=== PATIENT | male | born 1970 | race Caucasian/White ===

== ENCOUNTER 2022-02-28 12:02 | Emergency (ER) | payer BC, SELFPAY ==
[2022-02-28 12:08] VITALS: BP 141/90; PULSE 84; RESP 16; TEMP 36.8; O2SAT 98
--- OUTSIDE RECORDS SUMMARY | 2022-02-28 12:16 | XMS_ITS | Encounter Summary ---
:1970 Author Organization [facility] [place] [address] Care Team Providers Name Role Phone El Bolton MD Primary Care Provider Reason for Visit Reason Comments Medication Refill Encounter Details Date Type Department Care Team Description 11/23/2011 Refill Dermatology Lauri Faith MD [address] DERMATOLOGY [place], [place] [address] [place] [address] [phone] (Wo rk) Social History Tobacco Use Types Packs/Day Years Used Date Never Assessed Sex Assigned at Date Recorded Not on file documented as of this encounter Plan of Treatment Not on filedocumented as of this encounter Visit Diagnoses Not on filedocumented in this encounter 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
--- OUTSIDE RECORDS SUMMARY | 2022-02-28 12:16 | XMS_ITS | Encounter Summary ---
:1970 Author Organization [facility] [place] [address] Care Team Providers Name Role Phone El Bolton MD Primary Care Provider Reason for Visit Reason Comments Medication Refill Encounter Details Date Type Department Care Team Description 01/02/2013 Refill Dermatology Lauri Faith MD [address] DERMATOLOGY [place], [place] [address] [place] [address] [phone] (Wo rk) Social History Tobacco Use Types Packs/Day Years Used Date Never Assessed Sex Assigned at Date Recorded Not on file documented as of this encounter Plan of Treatment Not on filedocumented as of this encounter Visit Diagnoses Not on filedocumented in this encounter Care Teams Systems Management Consultant Relationship Specialty Start Date End Date El Bolton MD PCP - General 06/18/10 [address] [place] [address] documented as of this encounter
--- OUTSIDE RECORDS SUMMARY | 2022-02-28 12:16 | XMS_ITS | Encounter Summary ---
:1970 Author Organization [facility] [place] [address] Care Team Providers Name Role Phone El Bolton MD Primary Care Provider Reason for Visit Reason Comments Medication Refill Encounter Details Date Type Department Care Team Description 06/09/[address] 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
[2022-02-28 12:19] VITALS: RESP 16
--- NOTE | 2022-02-28 12:29 | ED.GENADUL_ITS ---
Discharge Plan Disposition Patient Disposition: HOME Condition: Stable Discharge Details Clinical Impression: Acute deep vein thrombosis (DVT) of right lower extremity Primary Care Provider: El Bolton ED Provider: Nida Landis Home Meds and New Rx's Prescriptions: New Eliquis 5 mg tablet 5 mg PO BID Qty: 204 0RF Rx Instructions: Take 2 tabs twice daily for 6 days starting 03/01/22 and then take 1 tab daily. Discharge Instructions Instructions: Deep Vein Thrombosis (ED) Additional Instructions: Your ultrasound today revealed that you have a deep vein thrombosis (blood clot) in your right leg. A prescription for the blood thinner Eliquis has been sent electronically to your pharmacy. You will take 10 mg twice daily for a total of 1 week and then take 5 mg twice daily. You will potentially be taking this medication for a total of 3 months and may need to be longer. It is recommended that you stay active and ambulate as you normally do. It is recommended to keep your legs elevated as much as possible when sitting. You have been placed on care management's list to help arrange for a follow-up appointment with your primary care doctor next week for reevaluation and for referral for any additional work-up for potential causes of your blood clot if indicated. Return immediately to the emergency department if you develop any worsening or new concerning symptoms such as fever, worsening swelling, pain, chest pain or shortness of breath. Discharge Data Discharge Physician: Nida Landis Medical Decision Making 51-year-old male presents with right lower leg pain, redness and swelling for the past week. He appears to have patchy erythema approximately 8 x 10 cm located on the right anterior medial calf. There is edema in the right leg compared to the left leg. He is otherwise neurovascularly intact. There is no pain with range of motion of the right knee or ankle. Suspect cellulitis but also consider DVT. Will obtain screening labs and ultrasound. Ultrasound notes a 25 cm DVT extending from the posterior tibialis veins into the popliteal vein. Results discussed with patient and he states he has been more immobile lately and falling asleep in his chair at nighttime. He denies any recent surgeries and no history of smoking. Suspect his DVT could have been precipitated by immobility. Will plan for follow-up with his PCP for potential thrombophilic work-up if indicated. Will treat with Eliquis 10 mg p.o. now and give 10 mg for this evening. A prescription for Eliquis was sent electronically to his pharmacy. Labs reviewed and he has a normal white blood cell count and CRP 2.55. As he has a source for his right leg pain, redness and swelling, will hold on treatment with antibiotics at this time. Patient again denies any shortness of breath or chest pain and do not obtain indication for PE work-up. Patient placed on care management list to help arrange for follow-up appoint wit h his primary care doctor for reevaluation and for potential thrombophilic work- up. Usual and customary return precautions given prior to discharge. Medical Records Medical records reviewed: Yes I reviewed the patient's medical records. Imaging Data Radiologic Study: Radiologist's impression: US LOWER EXTREMITY VENOUS RT CLINICAL HISTORY:? R calf pain/redness, swelling, r/o dvt? TECHNIQUE:? Right lower extremity venous ultrasound performed using grayscale, color-flow, and spectral Doppler analysis. COMPARISON:? No exams were available for comparison FINDINGS: The right common femoral, and femoral veins demonstrate normal compressibility, augmentation, and color Doppler. There is nonocclusive hypoechoic thrombus seen extending from the posterior tibialis veins into the popliteal vein.? It measures 25 cm in length.? The saphenofemoral junction is unremarkable.? There is no evidence of a Huntley cyst.? The soft tissues are unremarkable. IMPRESSION: 1. Findings of a right lower extremity DVT extending from the posterior tibialis veins into the popliteal vein. Lab Data Lab results reviewed: Yes I reviewed the patient's lab results. Labs: Laboratory Tests Range/Units 02/28/22 02/28/22 02/28/22 14:24 14:24 14:24 WBC (4.4-10.8) 10^3/uL 8.12 RBC (4.36-5.78) 10^6/uL 4.64 Hgb (13.5-17.5) g/dL 14.0 Hct (40.0-50.0) % 42.0 MCV (80-95) fL 91 MCH (27.0-33.0) pg 30.2 MCHC (32.0-36.0) % 33.3 RDW (11.8-14.1) % 12.1 Plt Count (130-400) 10^3/uL 145 MPV (8.0-11.0) fL 10.0 Immature Gran % 0.1 Neutrophils % 68.5 Lymphocytes % 19.2 Monocytes % 8.4 Eosinophils % 3.6 Basophils % 0.2 Nucleated RBC % (0.0-0.3) % 0.0 Absolute Neutrophils (1.2-6.7) 10^3/uL 5.56 Absolute Lymphocytes (1.2-3.4) 10^3/uL 1.56 Absolute Monocytes (0.1-0.8) 10^3/uL 0.68 Absolute Eosinophils (0.0-0.7) 10^3/uL 0.29 Absolute Basophils (0.0-0.2) 10^3/uL 0.02 ESR (0-15) mm/hr 7 Sodium (136-145) mmol/L 137 Potassium (3.5-5.1) mmol/L 4.1 Chloride (98-107) mmol/L 101 Carbon Dioxide (21.0-32.0) mmol/L 28.9 Anion Gap (3-11) mmol/L 7.1 BUN (7-18) mg/dL 16 Creatinine (0.70-1.30) mg/dL 1.0 Estimated GFR/1.73 m2 (mL/min/1.73m2) >= 60.00 Glucose (74-106) mg/dL 91 Calcium (8.5-10.1) mg/dL 8.8 Total Bilirubin (0.2-1.0) mg/dL 1.1 H AST (15-37) U/L 18 ALT (16-63) U/L 26 Alkaline Phosphatase (46-116) U/L 70 C-Reactive Protein (0.0-0.3) mg/dL 2.55 H Total Protein (6.4-8.2) g/dL 7.3 Albumin (3.4-5.0) g/dL 3.5 HPI General Mode of arrival: ambulatory . Date/Time Provider Initiated Documentation: 02/28/22 12:22 . Limitations to Documentation: no limitations . Information obtained by: patient . HPI Narrative: Pt is a 51yo M who presents to the ED w/ a c/o R leg pain, redness and swelling for the past week. 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 He states the pain is worse with walking. He states the area of redness and swelling has increased since onset. He denies any known fever or chills, body aches, chest pain or difficulty breathing. Related Data Home Medications Medication Instructions Recorded Confirmed apixaban 5 mg tablet (Eliquis) 5 mg PO BID #204 tabs 02/28/22 Previous Rx's Medication Instructions Recorded apixaban 5 mg tablet (Eliquis) 5 mg PO BID #204 tabs 02/28/22 Allergies Allergy/AdvReac Type Severity Reaction Status Date / Time No Known Allergies Allergy Unverified 02/28/22 12:17 General Stated Complaint: Vascular PABLO: 3 Review of Systems All systems reviewed & are unremarkable except as noted in HPI and below Constitutional Constitutional: Denies chills, Denies excessive sweating, Denies fatigue, Denies fever(s), Denies weakness and Denies weight loss Eyes Eyes: Reports system reviewed and no additional complaints, except as documented and Denies blurry vision ENT Ears, Nose, Mouth, and Throat: Denies vertigo, Denies dizziness, Denies otalgia, Denies nasal congestion, Denies sore throat and Denies throat swelling Cardiovascular Cardiovascular: Denies chest pain, Denies syncope, Denies rapid heart rate and Denies dyspnea Respiratory Respiratory: Denies chest congestion, Denies cough, Denies pain on inspiration a nd Denies dyspnea Gastrointestinal Gastrointestinal: Denies abdominal pain, Denies diarrhea and Denies vomiting Genitourinary Genitourinary: Denies hematuria, Denies dysuria and Denies flank pain Musculoskeletal Musculoskeletal: Denies back pain and Denies joint swelling Integumentary/Breasts Skin/Breast: Denies lesions and Denies rash Neurologic Neurologic: Denies behavioral changes, Denies confusion, Denies vertigo, Denies dizziness, Denies syncope, Denies localized weakness and Denies weakness Psychiatric Psychiatric: Denies behavioral changes, Denies confusion and Denies depression Endocrine Endocrine: Denies excessive sweating and Denies fatigue Hematologic/Lymphatic Hematologic/Lymphatic: Denies easy bruising and Denies lymphadenopathy Allergic/Immunologic Allergic/Immunologic: Denies throat swelling PFSH All Active Problems (Updated 02/28/22 @ 15:32 by Nida Landis DO) Acute deep vein thrombosis (DVT) of right lower extremity (Acute) Medical History (Updated 02/28/22 @ 15:32 by Nida Landis DO) No significant past medical history Surgical History (Updated 02/28/22 @ 12:43 by Nida Landis DO) No significant past surgical history Social History Smoking/Tobacco Use Status: Never Smoking risk assessment performed?: Yes Alcohol Intake: never Substance use type: does not use Do you feel safe at home: Yes Do you feel safe in your relationship?: Yes Exam Const General: cooperative and healthy appearing Orientation: alert, awake and oriented x3 HENMT Head: normal to inspection Ears: hearing grossly normal bilaterally, external ears normal and TM's normal bilaterally General nose exam: external nose normal Face and sinus: normal facial exam Mouth: oral mucosae normal Teeth and gingiva: dentition normal Throat: posterior oropharynx normal Eyes General: appearance normal, both eyes and all related structures Eyelids: eyelids normal Pupils: PERRL EOM: EOM intact bilaterally Neck Neck: normal visual inspection Lymphatic: no lymphadenopathy noted Chest Chest: normal inspection of the chest Resp Effort & Inspection: normal respiratory effort and able to speak in complete sentences Auscultation: clear to auscultation bilaterally Cardio Rate: regular rate Rhythm: regular rhythm GI Inspection: normal to inspection Palpation: soft, not firm, no guarding, no hepatosplenomegaly, no masses and nontender Auscultation: normal bowel sounds Back/Spine/Pelvis Back: no CVA tenderness Skin General skin exam: no rashes or lesions noted Neuro General: patient alert and patient awake Cognition: normal cognition Speech: speech normal Gait: normal gait Motor: muscle tone normal throughout Sensory Exam: no sensory deficits noted Extrem Ankle/foot/toe images: 1. Patchy erythema, hot to touch. There is edema of the right lower extremity compared to the left lower extremity. Right DP and PT pulses intact. Other: No pain with range of motion in the right knee or right ankle. Psych Appearance: grossly normal Mental Status: mental status grossly normal Speech and Movement: speech and movement normal Affect: normal affect Thought Process: normal Course Vital Signs Vital signs: Vital Signs Temperature 98.2 F 02/28/22 12:08 Pulse 84 02/28/22 12:08 Respiratory Rate 16 02/28/22 12:08 Blood Pressure 141/90 H 02/28/22 12:08 Pulse Oximetry 98 02/28/22 12:08 Temperature 98.2 F 02/28/22 12:08 Temperature Source Skin 02/28/22 12:08 Pulse 84 02/28/22 12:08 Respiratory Rate 16 02/28/22 12:19 Respiratory Effort 02/28/22 12:19 Blood Pressure 141/90 H 02/28/22 12:08 Blood Pressure Position Sitting 02/28/22 12:08 Pulse Oximetry 98 02/28/22 12:08 Oxygen Delivery Method Room Air 02/28/22 12:08 Oxygen Flow Rate 0 02/28/22 12:08 Pain Level 3 02/28/22 12:08
--- NOTE | 2022-02-28 12:30 | DI.US_ITS ---
Exam(s) US LOWER EXTREMITY VENOUS RT EXAM: US LOWER EXTREMITY VENOUS RT CLINICAL HISTORY: R calf pain/redness, swelling, r/o dvt TECHNIQUE: Right lower extremity venous ultrasound performed using grayscale, color-flow, and spectr al Doppler analysis. COMPARISON: No exams were available for comparison FINDINGS: The right common femoral, and femoral veins demonstrate normal compressibility, augmentation, and col or Doppler. There is nonocclusive hypoechoic thrombus seen extending from the posterior tibialis vein s into the popliteal vein. It measures 25 cm in length. The saphenofemoral junction is unremarkable . There is no evidence of a Huntley cyst. The soft tissues are unremarkable. IMPRESSION: 1. Findings of a right lower extremity DVT extending from the posterior tibialis veins into the popli teal vein. 2. Results of this exam have been verbally communicated with provider. DATA REPOSITORY:
--- NOTE | 2022-02-28 12:55 | PDOC.ERCMPRO ---
- If Service Date Differs Date of service: 02/28/22 Time of Service: 12:55 Care Management Progress Note SBIRT screen: negative. Pt does not reports any substance use or mental health symptoms.
[2022-02-28] MEDS: Cephalexin 500 MG CAP 1000 MG PO (13:54)
[2022-02-28 14:15] VITALS: BP 110/60; PULSE 68; TEMP 36.6; O2SAT 98
[2022-02-28 14:29] LABS: Abs Immature Grans 0.01 10^3/uL (0.0-0.06); Absolute Basophil Count 0.02 10^3/uL (0.0-0.2); Absolute Eosinophil Count 0.29 10^3/uL (0.0-0.7); Absolute Lymphocyte Count 1.56 10^3/uL (1.2-3.4); Absolute Monocyte Count 0.68 10^3/uL (0.1-0.8); Absolute Neutrophil Count 5.56 10^3/uL (1.2-6.7); Basophils % 0.2; Eosinophils % 3.6; Immature Grans % 0.1; Lymphocytes % 19.2; MCH 30.2 pg (27.0-33.0); MCHC 33.3 % (32.0-36.0); MCV 91 fL (80-95); Monocytes % 8.4; Neutrophils % 68.5; Platelet Count 145 10^3/uL (130-400); RBC 4.64 10^6/uL (4.36-5.78); RDW 12.1 % (11.8-14.1); RDW-SD 39.9 fL; WBC 8.12 10^3/uL (4.4-10.8)
[2022-02-28 14:30] LABS: ESR 7 mm/hr (0-15)
[2022-02-28 14:46] LABS: ALT 26 U/L (16-63); AST 18 U/L (15-37); Albumin 3.5 g/dL (3.4-5.0); Alkaline Phosphatase 70 U/L (46-116); Anion Gap 7.1 mmol/L (3-11); BUN 16 mg/dL (7-18); Bilirubin, Total 1.1 mg/dL (0.2-1.0); C-Reactive Protein 2.55 mg/dL (0.0-0.3); CO2 28.9 mmol/L (21.0-32.0); Calcium 8.8 mg/dL (8.5-10.1); Chloride 101 mmol/L (98-107); Glucose 91 mg/dL (74-106); Potassium 4.1 mmol/L (3.5-5.1); Sodium 137 mmol/L (136-145); Total Protein 7.3 g/dL (6.4-8.2)
[2022-02-28] MEDS: Apixaban 5 MG TAB 10 MG PO ×2 (15:24→15:25)
[2022-02-28 15:44] VITALS: BP 133/92; PULSE 67; TEMP 37; O2SAT 94
== END 2022-02-28 15:50 | disposition home or self-care (01) ==
PROVIDERS: Emergency Provider Physician Assistant; PCP Internal Medicine
DX: I82.401 Acute embolism and thrombosis of unspecified deep veins of right lower extremity (principal)
CPT/HCPCS: 80053; 85652; 99284; 85025; 86140; 93971

== ENCOUNTER 2022-03-15 13:56 | Emergency (ER) | payer BC, SELFPAY ==
[2022-03-15 14:03] VITALS: PULSE 90; RESP 18; TEMP 36.8; O2SAT 98
--- NOTE | 2022-03-15 14:15 | DI.RAD_ITS ---
Exam(s) XR KNEE LT 3V AP,LAT,LIZETTE EXAM: XR KNEE LT 3V AP,LAT,LIZETTE CLINICAL HISTORY: medial pain fall/trauma TECHNIQUE: COMPARISON: No exams were available for comparison FINDINGS: Three views were obtained. There is no evidence of acute fracture or dislocation. IMPRESSION: RADIATION DOSE DELIVERED: Total DLP
--- NOTE | 2022-03-15 14:15 | DI.RAD_ITS ---
Exam(s) XR ANKLE LT COMPLETE EXAM: XR ANKLE LT COMPLETE CLINICAL HISTORY: lateral pain fall/trauma TECHNIQUE: COMPARISON: No exams were available for comparison FINDINGS: Four views were obtained. The ankle mortise is well maintained. There is no evidence of acute fract ure or dislocation. IMPRESSION: RADIATION DOSE DELIVERED: Total DLP
--- NOTE | 2022-03-15 15:38 | ED.GENADUL_ITS ---
Discharge Plan Disposition Patient Disposition: HOME Condition: Stable Discharge Details Clinical Impression: Left ankle sprain, Knee pain, left, Abrasion of elbow, left Primary Care Provider: El Bolton ED Provider: Jc Morgan Home Meds and New Rx's Prescriptions: No Action Eliquis 5 mg tablet 5 mg PO BID Qty: 204 0RF Rx Instructions: Take 2 tabs twice daily for 6 days starting 03/01/22 and then take 1 tab daily. Discharge Instructions Instructions: Ankle Sprain (ED), Abrasion (ED), Knee Pain (ED) Additional Instructions: Continue to rest and apply ice to areas of injury. Monitor for any new or worsening symptoms and return to the emergency department if you have any concerning findings. For pain and discomfort please use acetaminophen and avoid any other NSAIDs while you are on the Eliquis. If not improving in the next 1 to 2 weeks please follow-up with your primary care provider for reassessment and repeat imaging or referrals as needed. Referrals: El Bolton MD [Primary Care Provider] - (As needed for reassessment) Discharge Data Discharge Date/Time-TO BE ENTERED AT DEPARTURE: 03/15/22 16:08 Medical Decision Making Patient presenting to the emergency department for chief complaint of left knee and ankle pain. Patient is 24 hours status post fall while at work and said he twisted his knee and ankle during the fall. Patient denies any other injury or trauma. Patient is on Eliquis for DVT but denies any bleeding, headache, abdominal pain, hematuria or bloody stools. Physical exam shows tenderness to palpation of the proximal tibia and the lateral ankle. There is swelling to both of these areas as well otherwise exam is unremarkable. We will plan on performing radiological imaging. Patient denies any need of pain medication pending results. Review of radiological imaging and my interpretation shows no acute signs of fracture. Suspect sprain/strain at this time. Will place patient in bracing and recommended to follow-up with primary care provider if not improving over the next couple weeks. I do feel that patient can perform weightbearing activities as tolerated. Discussed use of acetaminophen for pain control as needed along with emergent return and follow-up precautions. After discussion of diagnosis and plan of care patient has no further needs, questions, or concerns and states clear understanding to return to the emergency department for any worsening symptoms. This documentation was generated using Dragon dictation system, please disregard any oddities of phrase or misspellings. HPI General Mode of arrival: ambulatory . Date/Time Provider Initiated Documentation: 03/15/22 14:11 . Limitations to Documentation: no limitations . Information obtained by: patient and RN notes reviewed . History of Present Illness 51 year old M presents to the emergency department with the chief complaint of fall with left knee and ankle pain, described as mild and moderate, with intensity rated at 3. Quality is described as aching, and is localized to the left and lower extremity. Patient reports no radiation. Patient started experiencing this day(s) (1) and it has been constant. Immobilization improves symptom(s), and Rest improves symptom(s), Movement worsens symptoms . Patient notes no other symptoms.. Patient did receive the following treatments prior to arrival, other (Acetaminophen) Related Data Home Medications Medication Instructions Recorded Confirmed apixaban 5 mg tablet (Eliquis) 5 mg PO BID #204 tabs 02/28/22 03/15/22 Previous Rx's Medication Instructions Recorded apixaban 5 mg tablet (Eliquis) 5 mg PO BID #204 tabs 02/28/22 Allergies Allergy/AdvReac Type Severity Reaction Status Date / Time No Known Allergies Allergy Unverified 02/28/22 12:17 General Stated Complaint: Orthopedic PABLO: 4 Review of Systems Narrative: 6 systems reviewed and unremarkable except what is marked below. Constitutional Constitutional: Denies headache(s) ENT Ears, Nose, Mouth, and Throat: Denies headache(s) Musculoskeletal Musculoskeletal: Reports as per HPI, Reports arthralgias, Denies joint swelling and Denies tingling Integumentary/Breasts Skin/Breast: Denies wounds Neurologic Neurologic: Denies headache(s), Denies tingling and Denies paresthesias PFSH All Active Problems Acute deep vein thrombosis (DVT) of right lower extremity (Acute) Left ankle sprain (Acute) Knee pain, left (Acute) Abrasion of elbow, left (Acute) Medical History No significant past medical history Surgical History No significant past surgical history Social History Smoking/Tobacco Use Status: Never Smoking risk assessment performed?: Yes Alcohol Intake: never Substance use type: does not use Do you feel safe at home: Yes Do you feel safe in your relationship?: Yes Exam Const General: cooperative, no acute distress and not ill appearing Orientation: alert, awake and oriented x3 HENMT Head: normocephalic and atraumatic Resp Effort & Inspection: normal respiratory effort, able to speak in complete sentences and no respiratory distress Cardio Rate: regular rate Rhythm: regular rhythm Pulses: normal peripheral pulses Skin General skin exam: no rashes or lesions noted Neuro General: patient alert, patient awake, patient oriented x3, moves all extremities and no focal motor deficits Sensory Exam: no sensory deficits noted Extrem General: normal exam except as noted Left lower extremity: knee Details: tenderness Location: of the proximal tibia, swelling, normal ROM, abnormal ROM Details: pain with active ROM and pain with passive ROM; able to extend lower leg actively and knee ligament exam normal and ankle Details: tenderness Location: of the lateral malleolus, swelling Details: laterally and abnormal ROM Details: pain with active ROM and pain with passive ROM Course Vital Signs Vital signs: Vital Signs Temperature 36.8 C 03/15/22 14:03 Pulse 90 03/15/22 14:03 Respiratory Rate 18 03/15/22 14:03 Pulse Oximetry 98 03/15/22 14:03 Temperature 36.8 C 03/15/22 14:03 Pulse 90 03/15/22 14:03 Respiratory Rate 18 03/15/22 14:03 Respiratory Effort 03/15/22 14:11 Blood Pressure Position Supine 03/15/22 14:03 Pulse Oximetry 98 03/15/22 14:03 Pain Level 3 03/15/22 14:03
--- NOTE | 2022-03-15 15:57 | DI.VRAD_ITS ---
PROCEDURE INFORMATION: Exam: XR Left Knee Exam date and time: 03/15/2022 3:28 PM Age: 51 years old Clinical indication: Other: Medial pain fall TECHNIQUE: Imaging protocol: Radiologic exam of the Left knee. Views: 3 views. COMPARISON: CR XR ANKLE LT COMPLETE 03/15/2022 3:17 PM FINDINGS: Bones/joints: Minimal degenerative tibial spine osteophyte formation. Mild degenerative changes of the medial femorotibial articular compartment, with minimal joint space narrowing and marginal tibial plateau osteophyte formation. No acute fracture or dislocation. Small knee joint effusion. Soft tissues: Normal. IMPRESSION: No acute fracture or dislocation. Dictated and Authenticated by: River Kirkland MD. Ordering:SURAJ Greene MD
--- NOTE | 2022-03-15 15:58 | DI.VRAD_ITS ---
PROCEDURE INFORMATION: Exam: XR Left Ankle Exam date and time: 03/15/2022 3:17 PM Age: 51 years old Clinical indication: Other: Lateral pain fall/ trauma TECHNIQUE: Imaging protocol: Radiologic exam of the Left ankle. Views: 3 or more views. COMPARISON: No relevant prior studies available. FINDINGS: Bones/joints: Small posterior and plantar calcaneal enthesophytes. No acute fracture or dislocation. Soft tissues: Mild anterior and lateral ankle soft tissue swelling/edema. IMPRESSION: 1. No acute fracture or dislocation. 2. Mild anterior and lateral ankle soft tissue swelling/edema. Dictated and Authenticated by: River Kirkland MD. Ordering:SURAJ Greene MD
== END 2022-03-15 16:08 | disposition home or self-care (01) ==
PROVIDERS: Emergency Provider Nurse Practitioner Family; PCP Internal Medicine
DX: S93.402A Sprain of unspecified ligament of left ankle, initial encounter (principal); S50.312A Abrasion of left elbow, initial encounter; M25.562 Pain in left knee; Z86.718 Personal history of other venous thrombosis and embolism; Z79.01 Long term (current) use of anticoagulants; W19.XXXA Unspecified fall, initial encounter; X50.1XXA Overexertion from prolonged static or awkward postures, initial encounter; Y99.0 Civilian activity done for income or pay
CPT/HCPCS: 29515; 73562; 99284; 73610; 99282

== ENCOUNTER 2022-03-19 16:41 | Outpatient (REF) | payer BC, SELFPAY ==
[2022-03-19 16:05] LABS: HCT 42.1 % (40.0-50.0); HGB 14.1 g/dL (13.5-17.5); MCH 29.6 pg (27.0-33.0); MCHC 33.5 % (32.0-36.0); MCV 88 fL (80-95); MPV 11.2 fL (8.0-11.0); Platelet Count 220 10^3/uL (130-400); RBC 4.76 10^6/uL (4.36-5.78); RDW 12.3 % (11.8-14.1); WBC 5.86 10^3/uL (4.4-10.8)
[2022-03-19 16:39] LABS: Hemoglobin A1C 5.9 % (<5.7)
[2022-03-19 17:14] LABS: ALT 34 U/L (16-63); AST 28 U/L (15-37); Albumin 3.6 g/dL (3.4-5.0); Alkaline Phosphatase 69 U/L (46-116); Anion Gap 10.8 mmol/L (3-11); BUN 22 mg/dL (7-18); CO2 25.2 mmol/L (21.0-32.0); CREATININE 1.1 mg/dL (0.70-1.30); Calcium 9.1 mg/dL (8.5-10.1); Calculated LDL 111 mg/dL (<100); Chloride 103 mmol/L (98-107); Cholesterol 189 mg/dL (<200); Glucose 117 mg/dL (74-106); HDL Cholesterol 68 mg/dL (40-60); Potassium 4.3 mmol/L (3.5-5.1); Sodium 139 mmol/L (136-145); Total Protein 7.5 g/dL (6.4-8.2); Triglyceride 50 mg/dL (<150)
== END 2022-03-19 16:42 | disposition home or self-care (01) ==
LOC: NCHCN 16:41
PROVIDERS: PCP Internal Medicine; Visit Provider Family Medicine
DX: Z00.00 Encounter for general adult medical examination without abnormal findings (principal); E66.3 Overweight; Z86.718 Personal history of other venous thrombosis and embolism; Z13.220 Encounter for screening for lipoid disorders; Z13.1 Encounter for screening for diabetes mellitus
CPT/HCPCS: 80053; 80061; 82306; 85027; 83036

== ENCOUNTER → 2023-09-07 01:46 | Outpatient (CLI) | payer BC, SELFPAY ==
--- NOTE | 2023-09-07 15:52 | DI.RAD_ITS ---
Exam(s) XR HIP PELVIS ADULT BL EXAM: XR HIP PELVIS ADULT BL CLINICAL HISTORY: BILAT HIP PAIN NOT RESPONDING TO CONSERVATIVE CARE. TECHNIQUE: 2D digital imaging was performed. Five views. COMPARISON: No exams were available for comparison FINDINGS: BONES: No acute fracture is present. No bony destructive lesion is seen. JOINTS: Anat-tp-[id number] narrowing of the right hip joint space. Mild periarticular spurring. Moder ate a severe narrowing of the superior left hip joint space. Spurring at the margin of the femoral h ead and acetabulum, greater inferiorly. No dislocation present. Mild degenerative changes of the r ight SI joint. SOFT TISSUE: Normal. IMPRESSION: Degenerative changes of both hips, left greater than right. DATA REPOSITORY: RADIATION DOSE DELIVERED:
== END ==
PROVIDERS: PCP Internal Medicine; Visit Provider Chiropractor
DX: M16.0 Bilateral primary osteoarthritis of hip (principal)
CPT/HCPCS: 73521

== ENCOUNTER 2023-09-21 10:08 | Outpatient (REF) | payer BC, SELFPAY ==
[2023-09-21 15:16] LABS: Hemoglobin A1C 5.8 % (<5.7)
[2023-09-21 15:25] LABS: ALT 37 U/L (16-63); AST 22 U/L (15-37); Albumin 3.4 g/dL (3.4-5.0); Alkaline Phosphatase 73 U/L (46-116); Anion Gap 10.5 mmol/L (3-11); BUN 20 mg/dL (7-18); Bilirubin, Total 0.7 mg/dL (0.2-1.0); CO2 26.5 mmol/L (21.0-32.0); Calcium 9.1 mg/dL (8.5-10.1); Calculated LDL 111 mg/dL (<100); Chloride 104 mmol/L (98-107); Cholesterol 208 mg/dL (<200); Estimated GFR 91.69 (mL/min/1.73m2); Glucose 100 mg/dL (74-106); HDL Cholesterol 52 mg/dL (40-60); Potassium 4.2 mmol/L (3.5-5.1); Sodium 141 mmol/L (136-145); Total Protein 6.7 g/dL (6.4-8.2); Triglyceride 227 mg/dL (<150)
== END 2023-09-21 10:09 | disposition home or self-care (01) ==
LOC: NCHCN 10:08
PROVIDERS: PCP Internal Medicine; Visit Provider Family Medicine
DX: Z00.00 Encounter for general adult medical examination without abnormal findings (principal)
CPT/HCPCS: 80053; 80061; 83036; 84154

== ENCOUNTER 2024-01-01 10:26 | Day surgery (SDC) | payer BC, SELFPAY ==
--- NOTE | 2023-12-31 20:23 | W.PM.DSUDISC ---
Date of service: 01/01/24 Time of Service: 12:49 Discharge Plan Disposition Patient Disposition: Home Condition: Good Discharge Details Reason For Visit: screening colonoscopy Attending Provider: Santhosh Escalona Primary Care Provider: Disha Jules Home Meds and New Rx's Prescriptions: Continued cholecalciferol (vitamin D3) 25 mcg (1,000 unit) capsule 25 mcg PO DAILY Discontinued bisacodyl [Dulcolax (bisacodyl)] 5 mg tablet,delayed release (DR/EC) 5 mg PO ONCE Qty: 8 0RF Rx Instructions: Take per colonoscopy instructions provided by ordering providers office polyethylene glycol 3350 17 gram/dose powder 17 g PO ONCE Qty: 238 0RF Rx Instructions: Take per colonoscopy instructions provided by ordering providers office Discharge Instructions Instructions: Colorectal Polyps (GEN) Additional Instructions: Jose, we were able to complete your colonoscopy today without any problems at all. Your prep was excellent and we could see everything just fine. I did find 1 polyp. It was medium in size, and came out very smoothly. I will send it off for testing, and once I know the nature of the polyp, I will be in touch with recommendations for the timing of your next colonoscopy. If you need anything at all or have any questions, please do not hesitate to ask at any point 1. If tolerated, consume a soft, low fiber diet for 1-2 days. 2[address] Do not drive, drink alcohol, operate machinery, make critical decisions, or do activities that require coordination or balance for 24 hours. 3. Because air was put into your colon during the procedure, expelling air from your rectum (passing gas or farting) is normal. 4. You may not have a bowel movement for 1-3 days because of the colonoscopy prep. This is normal. 5. Go directly to the emergency room if you notice any of the following: Develop chills (warm to touch), or if you have a thermometer and your temperature is above 101 Difficulty breathing or difficultly swallowing Persistent vomiting Severe abdominal pain, other than gas cramps Severe chest pain Black, tarry stools Any bleeding ? exceeding one tablespoon 6. Call your physician if the site where your intravenous was started becomes red, swollen, painful, and warm to touch. 7. Your physician has reviewed your pre-procedure medications. Please continue to take those medications as previously ordered. You will be given specific information/education regarding any changes to your medications before leaving. Activity:: Activity as Tolerated Diet:: As Tolerated Discharge Orders Discharge Orders: Discharge Order (Routine); Ordered 12/31/23 Ordered By: Santhosh Escalona DS: Diagnosis Discharge Diagnosis (1) Encounter for screening colonoscopy: Status: Acute Asessment and Plan: Follow-up on polypectomy results
--- NOTE | 2023-12-31 20:24 | COLE_ITS ---
Date of service: 01/01/24 Time of Service: 12:53 Colonoscopy Report Date of procedure: 01/01/24 Pre-op diagnosis general: screening colonoscopy Post-op diagnosis procedure note: other (Colon polyp) Procedure: colonoscopy with polypectomy Surgeon: Santhosh Escalona Anesthesia Type: General:No Airway Estimated blood loss (mL): 5 Pathology: other (0.5 cm pedunculated polyp at 75 cm) Complications: None Disposition: same day Indications: Kan is a 53 year old man who needs his first screening colonoscopy Prep: Miralax/Dulcolax Procedure Start Time: 12:24 Procedure End Time: 12:41 Retraction Time: 5 Findings: 0.5 cm pedunculated polyp at 75 cm Procedure Description: After the induction of monitored anesthetic care, and with the patient in left lateral decubitus position, I began by performing an external anorectal exam.? Perineum and skin were normal, as was the anal verge.? There was no evidence of external hemorrhoids.? Next, I performed a digital rectal exam.? I did not appreciate any abnormal findings.? Next, I advanced a colonoscope into the rectal vault.? I performed retroflexion.? This appeared normal.? Using insufflation, I then advanced the colonoscope beyond the rectal folds and into the sigmoid colon before advancing towards the cecum.? The scope was noted to be in the cecum by identification of the ileocecal valve and appendiceal orifice.? I then began withdrawing the colonoscope using repeated irrigation as necessary for full evaluation of the colonic mucosa. Around 75 cm from the anal verge was a 0.5 cm pedunculated polyp. This was removed with cold forceps without any issue. There was minimal bleeding. ?Once the scope was withdrawn to the level of the rectum, great care was taken to examine portions of the rectal folds.? Finally, the scope was withdrawn and the patient was brought to the same-day surgery recovery unit as the anesthetic wore off. ?The findings and instructions were shared with the patient prior to discharge. [place] Bowel Prep [place] Bowel Prep Right Colon: 3 Left Colon: 3 Transverse Colon: 3 Total Score: 9
[2024-01-01 10:47] VITALS: BP 134/96; PULSE 78; RESP 16; TEMP 36.6; O2SAT 97
[2024-01-01] MEDS: Lactated Ringers 1,000 ML 80 ML IV (10:51)
--- NOTE | 2024-01-01 12:12 | W.ANESPRE ---
General Info Date of Service Date Performed: 01/01/24 Height: 6 ft Weight: 125.8 kg Body Mass Index (BMI): 37.5 Surgical Procedure: Operation Date: 01/01/24 12:35 Proposed Procedure Side Surgeon p Colonoscopy Santhosh Escalona MD Meds Allergies and Home Medications Allergies Allergy/AdvReac Type Severity Reaction Status Date / Time No Known Allergies Allergy Verified 12/31/23 13:36 Home Medication Medication Instructions Recorded cholecalciferol (vitamin D3) 25 25 mcg PO DAILY 10/19/23 mcg (1,000 unit) capsule Current Visit Medications: Current Medications Generic Name Dose Route Start Last Admin Trade Name Freq PRN Reason Stop Dose Admin Hyoscyamine Sulfate 0.125 mg 12/31/23 20:25 Hyoscyamine 0.125 Mg Sl/Oral/Chew SL 01/30/24 20:24 DIRECTED PRN Ringer's Solution 1,000 mls @ 80 mls/hr 01/01/24 06:00 01/01/24 10:51 IV 01/01/24 23:59 80 mls/hr INFUSION LISSET Administration IV Miscellaneous Supplies 1 each 01/01/24 06:00 Iv Access IV 01/01/24 23:59 DIRECTED LISSET Ondansetron HCl 4 mg 12/31/23 20:25 Ondansetron 4 Mg/2 Ml Vial IVP 01/30/24 20:24 Q4H PRN PRN Nausea / Vomiting Sodium Chloride 0 ml 01/01/24 06:00 Normal Saline Flush 10 Ml Syr IV 01/01/24 23:59 PRN PRN Sodium Chloride 0 ml 01/01/24 06:00 Normal Saline 10 Ml Vial IJ 01/01/24 23:59 DIRECTED PRN Sterile Water 0 ml 01/01/24 06:00 Water,Injection,Sterile 10 Ml Vial IJ 01/01/24 23:59 DIRECTED PRN PFSH Active Problems Active Problems: Problem Status Onset Code Encounter for screening colonoscopy Z12.11 Osteoarthritis of right hip M16.11 Osteoarthritis of left hip M16.12 Medical History Medical History Prediabetes pt. denies Plantar fascial fibromatosis History of thromboembolism 2021-was on blood thinner for 6 months and has not had any issues since No significant past medical history Surgical History Surgical History No significant past surgical history Tobacco Smoking/Tobacco Use Status: Never Alcohol Alcohol Intake: never Substance Use Substance use: Never Substance use type: does not use Vital Signs and Lab Results Vital Signs Most Recent Vital Signs in EMR: Most Recent Vital Signs Temp Pulse Resp BP Pulse Ox 36.6 C 78 16 134/96 H 97 01/01/24 10:47 01/01/24 10:47 01/01/24 10:47 01/01/24 10:47 01/01/24 10:47 Lab Results Blood Type / Crossmatch: No Data to Display Complete Blood Count: No Data to Display Complete Metabolic Panel: No Data to Display Liver Function Panel: No Data to Display Coagulation Panel: No Data to Display Cardiac Panel: No Data to Display Arterial Blood Gas: No Data to Display Venous Blood Gas: No Data to Display Pancreas Panel: No Data to Display Thyroid Panel: No Data to Display Infectious Disease: No Data to Display Blood Cultures: No Data to Display Toxicology Panel: No Data to Display Anesthesia Assessment and Plan Anesthesia History Personal History: No History of Anesthesia Complications Family History: Family History Unknown Exercise Tolerance Exercise Tolerance: Metabolic Equivalents>4 Pertinent Negatives Pertinent Negatives: No Symptoms of GERD Cardiac & Pulmonary Exam Cardiac Exam: Normal S1/S2 Heart Sounds Pulmonary Exam: Clear Bilateral Breath Sounds Implantable Cardiac Device Does patient have a Pacemaker or an ICD?: No Airway Exam Known Difficult Airway: No Mallampati Class: 2 Mouth Opening: Normal (> 3cm) Thyromental Distance: Greater than 3 cm Neck Range of Motion: Full ROM Neck Circumference: Thick Teeth Condition: Normal Dentition ASA Classification ASA Score: ASA 2 Emergency Case?: No NPO Status NPO Status: NPO Clears >2 hours, Solids >8 hours Anesthesia Plan Resuscitation Status: Full Code Anesthesia Technique: General Anesthesia Airway Planned: Natural Airway Monitors Used: Standard Monitors
[2024-01-01 12:13] VITALS: BMI 37.5
--- NOTE | 2024-01-01 12:30 | BOWEL_PTH ---
PATIENT: Jose Lamar LOC: [facility] U#:[id number] AGE/SX: 53/M ROOM: RE01/01/[address]: Santhosh Escalona MD : 1970 BED: DIS: 01/01/2024 SPEC #: [id number] RECD: 01/01/24 17:01 STATUS: [facility] #: [id number] RADHA: 01/01/24 12:[address]: Santhosh Escalona DEPT: Surgical Specimen RECD BY: Brenna Mccauley ENTERED: 01/01/24 17:02 SP TYPE: Bowel OTHR DR: Disha Jules Tissues: 1 - BIOPSY BOWEL Procedures: GROSS AND MICRO LEVEL 4 Comments: [id number]
[2024-01-01 12:47] VITALS: BP 116/75; PULSE 74; RESP 18; TEMP 36.3; O2SAT 93
--- NOTE | 2024-01-01 12:56 | W.ANESPOSTOP ---
Postoperative Evaluation Date, Time and Location Date Performed: 01/01/24 Time Performed: 12:57 Patient Location: Day Surgery Unit Vital Signs Most Recent Imported Vital Signs: Most Recent Vital Signs Temp Pulse Resp BP Pulse Ox 36.3 C L 74 18 116/75 93 01/01/24 12:47 01/01/24 12:47 01/01/24 12:47 01/01/24 12:47 01/01/24 12:47 Pain Score Most Recent Pain Score: Most Recent Pain Score Pain Level 0 01/01/24 12:47 Assessment Mental Status: Awake (Alert & Oriented to Patient Baseline) Airway and Respiratory Function: Patent airway with normal (patient baseline) respiratory exam Cardiovascular Function: Hemodynamically Stable Hydration Status: Adequately Hydrated Nausea & Vomiting: No Nausea or Vomiting Pain: Pt. Denies Any Pain Peripheral Nerve Block: Patient did not receive a nerve block
[2024-01-01 13:18] VITALS: BP 129/78; PULSE 76; RESP 16; TEMP 36.9; O2SAT 95
== END 2024-01-01 14:02 | disposition home or self-care (01) ==
LOC: SUR 10:26
PROVIDERS: PCP Family Medicine; Visit Provider Surgery
PROC: 0DJD8ZZ Inspection of Lower Intestinal Tract, Via Natural or Artificial Opening Endoscopic (ICD-10-PCS; CPT 45378; principal; 2024-01-01 12:30)
DX: Z12.11 Encounter for screening for malignant neoplasm of colon (principal); D12.4 Benign neoplasm of descending colon
CPT/HCPCS: 45380; 88305; J2001; J2704

== ENCOUNTER 2025-06-19 10:36 | Outpatient (CLI) | payer BC, SELFPAY ==
--- NOTE | 2025-06-19 10:00 | DI.RAD_ITS ---
Exam(s) XR PELVIS AP EXAM: XR PELVIS AP CLINICAL HISTORY: PRE OP L LUAN. TECHNIQUE: 2D digital imaging was performed.One images were obtained. COMPARISON: CR XR HIP PELVIS ADULT BL from 09/07/2023 FINDINGS: BONES: No acute fracture is present. No bony destructive lesion is seen. JOINTS: There is again seen asymmetric joint space narrowing in the left hip particularly superiorly. There is an osteophyte at the femoral head. Subchondral sclerosis is also noted. There is mild narrowing of the right hip joint. The symphysis pubis is unchanged. No joint space narrowing is present. SOFT TISSUE: Normal. IMPRESSION: Marked degenerative changes seen in the left hip. DATA REPOSITORY: RADIATION DOSE DELIVERED:
== END 2025-06-19 10:37 | disposition home or self-care (01) ==
LOC: DIORS 10:36
PROVIDERS: PCP Family Medicine; Visit Provider Physician Assistant
DX: M16.12 Unilateral primary osteoarthritis, left hip (principal)
CPT/HCPCS: 72170

== ENCOUNTER 2025-06-19 13:22 | Outpatient (REF) | payer BC, SELFPAY ==
[2025-06-19 12:46] LABS: HCT 45.7 % (40.0-50.0); HGB 14.9 g/dL (13.5-17.5); MCH 29.0 pg (27.0-33.0); MCHC 32.6 % (32.0-36.0); MCV 89 fL (80-95); MPV 11.6 fL (8.0-11.0); Platelet Count 178 10^3/uL (130-400); RBC 5.14 10^6/uL (4.36-5.78); RDW 13.1 % (11.8-14.1); RDW-SD 42.7 fL; WBC 5.89 10^3/uL (4.4-10.8)
[2025-06-19 13:00] LABS: Anion Gap 7.4 mmol/L (3-11); BUN 14 mg/dL (9-23); CO2 27.6 mmol/L (20.0-31.0); Calcium 9.2 mg/dL (8.3-10.6); Chloride 106 mmol/L (98-107); Glucose 99 mg/dL (74-106); Potassium 4.4 mmol/L (3.5-5.1); Sodium 141 mmol/L (136-145)
== END 2025-06-19 13:23 | disposition home or self-care (01) ==
LOC: LBN 13:22
PROVIDERS: PCP Family Medicine; Visit Provider Student in an Organized Health Care Education/Training Program
DX: M16.12 Unilateral primary osteoarthritis, left hip (principal); Z01.818 Encounter for other preprocedural examination
CPT/HCPCS: 80048; 85027

== ENCOUNTER 2025-06-27 06:00 | Day surgery (SDC) | payer BC, SELFPAY ==
--- NOTE | 2025-06-26 15:10 | W.ANESPRE ---
General Info Date of Service Date Performed: 06/27/25 Height: 6 ft Weight: 122.47 kg Body Mass Index (BMI): 36.6 Surgical Procedure: Operation Date: 06/27/25 07:50 Proposed Procedure Side Surgeon p Hip Total Hip Anterior Left Francis Zhao MD Meds Allergies and Home Medications Allergies Allergy/AdvReac Type Severity Reaction Status Date / Time No Known Allergies Allergy Verified 06/27/25 06:27 Home Medication ?Medication ?Instructions ?Recorded cholecalciferol (vitamin D3) 25 25 mcg PO DAILY 10/19/23 mcg (1,000 unit) capsule celecoxib 200 mg capsule (Celebrex) 200 mg PO BID PRN #60 caps 06/27/25 dexamethasone 4 mg tablet 4 mg PO DAILY #2 tabs 06/27/25 docusate sodium 100 mg capsule 100 mg PO BID #28 caps 06/27/25 (Colace) oxycodone 5 mg tablet 5 mg PO Q6H PRN #12 tabs 06/27/25 pantoprazole 40 mg tablet,delayed 40 mg PO DAILY #14 tabs 06/27/25 release Current Visit Medications: Current Medications Generic Name Dose Route Start Last Admin Trade Name Freq PRN Reason Stop Dose Admin Acetaminophen 1,000 mg 06/27/25 06:00 Acetaminophen 500 Mg Tab PO 06/27/25 23:59 PREOP LISSET Celecoxib 400 mg 06/27/25 06:00 Celecoxib 200 Mg Cap PO 06/27/25 23:59 PREOP LISSET Ringer's Solution 1,000 mls @ 80 mls/hr 06/27/25 06:00 IV 06/27/25 23:59 INFUSION LISSET Cefazolin Sodium/Dextrose 2 gm in 50 mls @ 100 mls/hr 06/27/25 06:00 Ancef Duplex IVPB 06/27/25 23:59 PREOP LISSET Tranexamic Acid/Sodium Chloride 1,000 mg in 100 mls @ 600 mls/hr 06/27/25 06:00 IVPB 06/27/25 23:59 PREOP LISSET Sodium Chloride 0 ml 06/27/25 06:00 Normal Saline Flush 10 Ml Syr IV 06/27/25 23:59 PRN PRN Sodium Chloride 0 ml 06/27/25 06:00 Normal Saline 10 Ml Vial IJ 06/27/25 23:59 DIRECTED PRN Sterile Water 0 ml 06/27/25 06:00 Water,Injection,Sterile 10 Ml Vial IJ 06/27/25 23:59 DIRECTED PRN PFSH Active Problems Active Problems: Problem Status Onset Code Tubular adenoma of colon Acute ~01/01/24 D12.6 Encounter for screening colonoscopy Acute Z12.11 Osteoarthritis of right hip Acute M16.11 Osteoarthritis of left hip Acute M16.12 Medical History Medical History Prediabetes pt. denies Plantar fascial fibromatosis History of thromboembolism 2021-was on blood thinner for 6 months and has not had any issues since No significant past medical history Surgical History Surgical History History of colonoscopy (~12/2023) No significant past surgical history Tobacco Smoking/Tobacco Use Status: Never Passive smoking exposure: Yes Alcohol Alcohol Intake: never Substance Use Substance use: Never Substance use type: does not use Vital Signs and Lab Results Vital Signs Comment Vital Signs Comment:: Temp Pulse Resp BP Pulse Ox 36.6 C 78 16 156/83 H 97 06/27/25 06:37 06/27/25 06:37 06/27/25 06:37 06/27/25 06:37 06/27/25 06:37 Lab Results Complete Blood Count: WBC, (4.4-10.8) 5.89 10^3/uL 06/19/25, 11:10 RBC, (4.36-5.78) 5.14 10^6/uL 06/19/25, 11:10 Hgb, (13.5-17.5) 14.9 g/dL 06/19/25, 11:10 Hct, (40.0-50.0) 45.7 % 06/19/25, 11:10 Plt Count, (130-400) 178 10^3/uL 06/19/25, 11:10 Complete Metabolic Panel: Sodium, (136-145) 141 mmol/L 06/19/25, 11:10 Potassium, (3.5-5.1) 4.4 mmol/L 06/19/25, 11:10 Chloride, (98-107) 106 mmol/L 06/19/25, 11:10 Carbon Dioxide, (20.0-31.0) 27.6 mmol/L 06/19/25, 11:10 BUN, (9-23) 14 mg/dL 06/19/25, 11:10 Creatinine, (0.73-1.18) 1.01 mg/dL 06/19/25, 11:10 Est GFR (CKD-EPI 2020), (mL/min/1.73m2) 77.36 06/19/25, 11:10 Calcium, (8.3-10.6) 9.2 mg/dL 06/19/25, 11:10 Glucose, (74-106) 99 mg/dL 06/19/25, 11:10 Anesthesia Assessment and Plan Anesthesia History Personal History: No History of Anesthesia Complications Family History: No Family History of Anesthesia Complications Exercise Tolerance Exercise Tolerance: Metabolic Equivalents>4 Pertinent Negatives Pertinent Negatives: No Symptoms of GERD, No Major Cardiovascular Symptoms or Complaints (occasional PACs noted), No Major Pulmonary Symptoms or Complaints and No History of CVA/TIA Cardiac & Pulmonary Exam Cardiac Exam: Normal S1/S2 Heart Sounds Pulmonary Exam: Clear Bilateral Breath Sounds Implantable Cardiac Device Does patient have a Pacemaker or an ICD?: No Airway Exam Known Difficult Airway: No Mallampati Class: 2 Mouth Opening: Normal (> 3cm) Thyromental Distance: Greater than 3 cm Neck Range of Motion: Full ROM Neck Circumference: Thick Teeth Condition: Normal Dentition ASA Classification ASA Score: ASA 2 Emergency Case?: No NPO Status NPO Status: NPO Clears >2 hours, Solids >8 hours Anesthesia Plan Resuscitation Status: Full Code Anesthesia Technique: Spinal Anesthesia Airway Planned: Natural Airway Monitors Used: Standard Monitors Preoperative Comments:: Mr. Lamar is a 54-year-old male who presents to clinic for teaching preop regarding scheduled left LUAN. Patient has been experiencing significant discomfort for several years due to known DJD. Based on patient's continued discomfort despite conservative therapy they wish to proceed with surgery.
[2025-06-27] VITALS (14 sets, daily range): BP systolic 107–156; BP diastolic 54–90; PULSE 53–78; RESP 9–20; TEMP 36.4–36.6; O2SAT 93–100; BMI 36.6
[2025-06-27] MEDS: Celecoxib 200 MG CAP 400 MG PO (06:42)
[2025-06-27] MEDS: Acetaminophen 500 MG TAB 1000 MG PO (06:42)
[2025-06-27] MEDS: Lactated Ringers 1,000 ML 80 ML IV (07:00)
--- NOTE | 2025-06-27 07:07 | W.PM.DSUDISC ---
Date of service: 06/27/25 Discharge Plan Disposition Patient Disposition: Home Condition: Good Discharge Details Reason For Visit: Left hip DJD Attending Provider: Francis Zhao Primary Care Provider: Disha Jules Home Meds and New Rx's Prescriptions: New celecoxib [Celebrex] 200 mg capsule 200 mg PO BID PRNQty: 60 0RF Rx Instructions: Take one tablet twice daily for pain and inflammation docusate sodium [Colace] 100 mg capsule 100 mg PO BID Qty: 28 0RF pantoprazole 40 mg tablet,delayed release (DR/EC) 40 mg PO DAILY Qty: 14 0RF Rx Instructions: Take one tablet once daily dexamethasone 4 mg tablet 4 mg PO DAILY Qty: 2 0RF Rx Instructions: Take one tablet once daily for two days oxycodone 5 mg tablet 5 mg PO Q6H PRNQty: 12 0RF Rx Instructions: Take one tablet up to every 6 hours as needed for severe postoperative pain Continued cholecalciferol (vitamin D3) 25 mcg (1,000 unit) capsule 25 mcg PO DAILY Discharge Instructions Additional Instructions: Total Hip Discharge Instructions Activity: The most important activity is to walk. You should try to take short walks a few times a day. You have no restrictions on movement or positioning, but do not try to force what you do. You will find some stiffness and weakness with hip flexion (lifting your knee). Do not try to strengthen this too early, continue to practice walking and stairs and this will come. - Outpatient physical therapy can be helpful to help return you to a normal gait and improve your flexibility and strength. This can start around 2 weeks. For some patients, it?s not necessary. Usually this is determined at the time of discharge or at the first post-operative visit. - You should wear the JARAD hose on both legs for 2 weeks. Dressing: Keep the surgical dressing in place for at least one week. After the first week it may be removed and replace with light gauze and tape or nothing. It may get wet after 3 days but avoid soaking the dressing. If it gets wet, just lightly pat dry. It is important to always keep some gauze between skin folds, especially when you are sitting. Spend some time with the wound exposed when you are lying flat as the incision does wrinkle onto itself. Medications: - You should take Tylenol and an anti-inflammatory Celebrex as your primary pain control medications. If the Celebrex is too expensive or not covered, please call the office for another alternative (Advil/Ibuprofen or Naproxen/Aleve). You reported having Tylenol and Aspirin at home - if you need these medications prescribed please call office. - You have been prescribed a stronger pain medication Oxycodone for breakthrough pain, take as needed as prescribed. - You have also been prescribed a stomach acid reduction agent Pantoprozole to help reduce stomach acid and reflux. - You have also been prescribed Decadron to help with post-operative nausea and pain. You will take this for two days starting tomorrow. - You will be taking Aspirin 81mg twice a day for DVT prevention unless instructed otherwise. - If you have constipation you should take Colace (which has been prescribed) or Miralax (which is available [id number]). It takes most people 3-4 days to have a bowel movement. Follow-up: 2 weeks If you have any acute concerns or questions, please do not hesitate to contact the office at [phone]. You may contact Dr. Zhao with any questions after hours through the hospital at [phone] or on his cell phone at [phone]. Stand Alone Forms: Portal Information Referrals: Francis Zhao MD [ [facility] STAFF PHYSICIAN, Orthopaedic Surgical] Equipment/Supplies: Walker Activity:: Elevate Remove Dressings/Wound Care:: Do Not Remove Shower/Bathe:: Cover Diet:: As Tolerated Discharge Orders Discharge Orders: Discharge Order (Routine); Ordered 06/27/25 Ordered By: Sammi Connelly
--- NOTE | 2025-06-27 07:47 | W.PM.OP ---
Operative Note Operative Note PRE-OP DIAGNOSIS: Left Hip Osteoarthritis POST-OP DIAGNOSIS: same PROCEDURE: Left Anterior Total Hip Arthroplasty with Intraoperative Navigation SURGEON: Francis Zhao SHRINK PIT SUPERVISOR: Sammi Connelly ANESTHESIA TYPE: Spinal Refer to Anesthesia Record ESTIMATED BLOOD LOSS: 300 PATHOLOGY: none sent TOURNIQUET TIME: 0 COMPLICATIONS: None Patient was transported to: PACU Patient's condition: stable Implants: 1. Depuy Cable Acetabular Component, 54mm 2. Depuy Acetabular Liner, [id number] 3. Depuy Actis Standard Collared Femoral Stem, Size 6 4. Depuy Altrx Ceramic Femoral Head, Size 36+8.5mm Indications: I have seen Jose in clinic for symptoms of hip arthritis, confirmed with radiographic findings. He has exhausted nonoperative methods and was having significant limitations in daily function and desired better function and less pain. I discussed the technical details of a hip replacement. I explained the risks of the procedure to include, but not limited to, bleeding, infection, pain, stiffness, fracture, damage to nerves and vessels, damage to muscles and tendons, loosening, instability, leg length inequality, need for repeat procedure, blood clot and cardiopulmonary demise. Despite these risks, Jose elected to proceed. Findings: There was significant signs of arthritis throughout the hip with large, dense osteophytes throughout. Procedure Description: Jose was greeted in the preoperative holding area where the correct side was identified and marked. The consent was reviewed with the patient and signed. The history and physical was updated. All questions were answered. He was taken back to the operating room. A spinal anesthestic was then administered. The feet were wrapped with cast padding and Coban and then placed into the boot liners and then into the boots. Care was taken to protect the skin and make sure the heels were fully down and the boots were stable. The patient was then positioned onto the HANA table. Both legs were held in a neutral position. SCDs were applied. The patient was then slid down onto a peroneal post. Prophylactic antibiotics in the form of Cefazolin were administered. 1g of Tranxemic Acid was given intravenously within 30 minutes of incision. The left leg was then prepped with Chloraprep and draped in a standard fashion. A second prep with Chloraprep was performed prior to placement of a shower-curtain type drape with Iodine impregnated skin protection. A timeout to confirm correct identity, side and site, procedure, allergies, anesthesia, and medical concerns was performed. An obliquely oriented incision was made starting lateral to the ASIS and running distal over the Tensor Fascia Jessica (TFL) muscle belly toward the fibular head, approximately 10cm. The skin and soft tissue was dissected sharply, through Anaid?s fascia, and to the fascia of the TFL. With the fascia and superior border of the IT band identified, the fascia was incised with a new knife just above any perforators from the IT band. The TFL muscle belly was bluntly dissected away from the fascia and moved laterally. The fat between TFL and rectus was identified to ensure the dissection was not within the TFL. Blunt dissection created space between abductors and the capsule and retractor was placed over the lateral femoral neck. The fibers of the rectus femoris tendon were identified and these were freed from the anterior capsule. A second cobra retractor was placed around the medial femoral neck. The TFL was further retracted laterally to show the deep fascia. Careful dissection through this layer identified three main crossing vessels of the lateral femoral circumflex. These were cauterized in multiple locations and then cut without any noticeable bleeding. The TFL was further released bluntly from the deep fascia to expose anterior hip capsule and fat The soft tissue orthopaedic retractor was then placed beneath the TFL and against sartorius and medial soft tissues to protect and retract the soft tissues. A T-capsulotomy was then performed starting at the superior lateral acetabulum and moving distally to the intertrochanteric ridge. These capsular flaps were tagged with a No. 1 Vicryl and elevated from within. The capsular flaps were released to the shoulder of the lateral neck and to the lesser trochanter to give excellent visualization of the proximal femur. A neck osteotomy was performed using an oscillating saw based on preoperative templates. This cut started in the shoulder and of the lateral neck and exited medially. The saw was at all times directed medially to avoid injury to the greater trochanter. Gross traction was applied to the leg and the osteotomy opened. The femoral head was removed with a corkscrew, making sure to protect the TFL on its exit. Traction was released after head removal. This was measured on the back table to determine the starting reamer size. Portions of the rectus obscuring visualization were minimally elevated off the superior acetabulum. An anterior retractor was placed over the anterior wall between capsule and labrum and attached to the Gripper retraction system. The femur was rotated to 90 degrees and medial capsule was fully released until the lesser trochanter was palpable and visible; the femur was returned to 30 degrees. A posterior retractor was placed similarly between capsule and labrum. This provided excellent visualization. The contents of the cotyloid fossa were removed with electrocautery and the labrum was removed with a knife. There was a notable floor osteophyte. There was significant chondromalacia of the superior acetabulum. Acetabular reaming began with a 49mm reamer. This first reaming was directed anterior to posterior and medial to get down to the true floor. This was inspected and reamed until the true floor was reached. The anterior retractor was then released and entry and exit was provided by traction on the capsular flaps. I then reamed sequentially up to a 54mm reamer where good fit was obtained. The larger reamers were oriented based on anatomical reference of the anterior and lateral rain to ensure proper abduction and anteversion. Positioning and size was confirmed with the fluoroscopy. A 54mm Depuy Cable acetabular component was selected. The acetabulum was reamed around the periphery with the selected acetabular size to prevent a rim fit. The deep tissues were irrigated. The acetabular component was then impacted in a position of about 40-45 degrees of abduction and 15-20 degrees of anteversion, using the patient?s anatomy as the ultimate landmark. Fluoroscopy was used to confirm this. There was excellent automatic toe laster of the acetabular component and the inserting handle was removed. The acetabular liner, Depuy [id number] polyethylene liner, was inserted and lined up with the tines of the acetabular component. There was no soft tissue interposition. The liner was then impacted into position and confirmed to be well-seated. A portion of the loli-articular cocktail was then injected around the acetabulum into the capsule and periosteum. This cocktail consisted of 123mg of Ropivacaine, 0.25mg of Epinephrine, 0.04mg of Clonidine, and 15mg of Ketorolac, diluted to 50cc. The leg was rotated to 120 degrees. Any remaining medial capsule was released until the lesser trochanter was easily palpable. A retractor was placed medially. The lateral capsule was further released into the shoulder to allow access to the greater trochanter. A Owens retractor was placed over the greater trochanter which allowed the trochanter to flip in front of the capsule for excellent exposure. The leg was brought down into maximal extension and 20 degrees of adduction while ensuring there was no impingement on the acetabulum. Any remnant capsule within the trochanter was released. Piriformis and obturator externis were identified and protected. There was excellent access to the proximal femur. The lateral neck remnant was removed with a rongeur. A blunt canal probe was used to identify the canal and trajectory for later broaching. A box osteotome initiated the broach course. A small curved rasp and a curved curette were used to work laterally. Broaching then began with a starter Actis broach. This was inserted manually around the trochanter and into the canal before mallet blows. The broach was seated to a few millimeters below the cut level based on the neck cut and the preoperative template. Sequential broaching was continued with the [employer] pneumatic broaching device until a tight fit was obtained with good rotational control of the femur. A trial standard neck was inserted along with a +8.5 trial head. The leg was brought out of extension and adduction and then reduced with traction and internal rotation. The leg was stable anteriorly in a position of 30 degrees of extension and 90 degrees of external rotation. Fluoroscopy was used to ensure there was no fracture and the stem was seated well. Leg lengths were checked with an AP pelvis and pelvic reference points. [employer] navigation system was used to confirm appropriate positioning and leg length and offset. Once content with the desired offset and leg lengths, the leg was brought back into extension, external rotation and adduction. The periosteum and surrounding tissue was injected with remaining portion of the loli-articular cocktail. The proximal femur was irrigated as well as the deep tissues. The [employer] standard collared stem, size 6, was then manually inserted into the proximal femur making sure to control rotation. It was then malleted into position with light blows, giving breaks to allow bone expansion and decrease risk of fracture. The selected Depuy Altrx Ceramic Head, size 36+8.5mm, was then placed onto the clean and dry trunnion and secured with impaction onto the tapered fit. The leg was brought back out of extension and adduction and reduced with traction and internal rotation. Stability was confirmed with no shuck at 90 degrees of external rotation and 30 degrees of extension. No impingement through range of motion arc. Final x-ray images were obtained with fluoroscopy to confirm adequate positioning and no intraoperative fracture. The deep tissues were thoroughly irrigated with Surgiphor, betadine solution. This was allowed to sit in the wound for 3 minutes before being thoroughly irrigated out with normal saline. The capsule was then reapproximated with the previously placed sutures. The TFL fascia was finally closed with a No. 2 Stratafix, barbed suture. Deep tissues were then reapproximated with 0 Vicryl and a running 2-0 Vicryl. The skin was closed with a running 4-0 Monocryl in a subcuticular fashion. This was reinforced with skin glue. A Mepilex silver dressing was applied. At the end of the case, all counts were correct. Jose was transferred to the hospital bed without difficulty and suffering no apparent complication. He has a good prognosis. Physical therapy will start today and without restrictions, weight-bearing as tolerated. Aspirin 81mg BID will be used for DVT prophylaxis. Date of Procedure: 06/27/25
[2025-06-27] MEDS: ceFAZolin 2 GM/50 ML BAG IVPB (07:50)
[2025-06-27] MEDS: TRANEXAMIC ACID/SOD. CHL. 1,000 MG/100 ML BAG 600 MG IVPB (07:55)
[2025-06-27] MEDS: ROPIvacaine/EPI/CLONIDINE/KET 50 ML SYRINGE IJ (08:07)
--- NOTE | 2025-06-27 08:55 | DI.RAD_ITS ---
Exam(s) XR HIP LT IN OR EXAM: XR HIP LT IN OR CLINICAL HISTORY: left hip osteoarthritis TECHNIQUE: 2D and realtime digital imaging was performed. CONTRAST MATERIAL: Refer to procedure report. COMPARISON: CR XR PELVIS AP from 06/19/2025 FINDINGS: Fluoroscopy was provided for Dr. Zhao during the performance of a left total hip arthroplasty. Please refer to the procedure report for complete details. Ka,r=4.7 mGy IMPRESSION: RADIATION DOSE DELIVERED: 0.0 0.0 0
--- NOTE | 2025-06-27 09:48 | W.ANESPOSTOP ---
Postoperative Evaluation Date, Time and Location Date Performed: 06/27/25 Time Performed: 09:40 Patient Location: Day Surgery Unit Vital Signs Most Recent Imported Vital Signs: Most Recent Vital Signs Temp Pulse Resp BP Pulse Ox 36.6 C 59 L 9 L 122/77 96 06/27/25 09:26 06/27/25 09:36 06/27/25 09:36 06/27/25 09:36 06/27/25 09:36 Pain Score Most Recent Pain Score: Most Recent Pain Score Pain Level 2 06/27/25 09:26 Assessment Mental Status: Awake (Alert & Oriented to Patient Baseline) Airway and Respiratory Function: Patent airway with normal (patient baseline) respiratory exam Cardiovascular Function: Hemodynamically Stable Hydration Status: Adequately Hydrated Nausea & Vomiting: No Nausea or Vomiting Pain: Pt. Denies Any Pain Peripheral Nerve Block: Patient did not receive a nerve block
[2025-06-27] MEDS: oxyCODONE 5 MG TAB PO ×2 (09:57→10:18)
--- NOTE | 2025-06-27 10:33 | PT.INIE ---
PT Notes Visit Reasons: Left hip DJD Physical Therapy Day Surgery Initial Evaluation Date: 06/27/2025 Referring Doctor: JESSICA Hayden PT Orders: PT CONSULT: S/P Ortho Surgery Precautions: WBAT through L LE with AD. Patient Profile/Admitting Diagnosis: Jose is a 54-year-old male patient with degenerative joint disease of the L hip and is S/P L anterior LUAN on postoperative day 0> PMHX: All Active Problems (Updated 01/13/24 @ 15:55 by Kira Barragan RN) Tubular adenoma of colon (Acute ~01/01/24) Encounter for screening colonoscopy (Acute) Osteoarthritis of right hip (Acute) Osteoarthritis of left hip (Acute) POCUS INJECTION 12/10/23 Medical History (Updated 01/13/24 @ 15:55 by Kira Barragan RN) Prediabetes pt. denies Plantar fascial fibromatosis History of thromboembolism 2021-was on blood thinner for 6 months and has not had any issues since Surgical History (Updated 01/05/24 @ 10:45 by Grace Bledsoe) History of colonoscopy (~12/2023) Social History/Home Situation: Lives in a home adjaccent to his parents house. Has 6 steps to enter with rails on B sides. 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 Equipment Owned/DME: S[employer], F[employer] Subjective: Patient reported 5/10 in the L hip. Agreeable to working with PT for the eval and treat. Objective: General Observation: Mepilex Ag over surgical incision. TEDS to B legs/feet. Mental Status: A and O x 4 Pain: 5-6/10 in the L hip ROM: Right Lower Extremity: Hip flexion WFL. Hip abduction WFL. Knee flexion WFL. Ankle dorsiflexion WFL. Ankle plantarflexion WFL. Left Lower Extremity: Hip flexion WFL. Hip abduction WFL. Knee flexion WFL. Ankle dorsiflexion WFL. Ankle plantarflexion WFL. Strength: Right Lower Extremity: Hip flexors 5/5. Hip abductors 5/5. Knee flexors 5/5. Knee extensors 5/5. Ankle dorsiflexors 5/5. Ankle plantarflexors 5/5. Left Lower Extremity:Hip flexors 4-/5. Hip abductors 4-/5. Knee flexors 4/5. Knee extensors 4-/5. Ankle dorsiflexors 5/5. Ankle plantarflexors 5/5. Sensation: Intact as to pain and light pressure in B LE Bed Mobility/Transfers: Minimal cueing provided for use of B hands as needed for support, movement sequence, AD management, and posture to reduce fall risk and minimize pain report Supine to sit stand by assist Sit to stand stand by assist with FWW Stand to sit stand by assist with FWW Bed to chair stand by assist with FWW Gait: 150 feet with front-wheeled walker with stand by assist only. Step through reciprocal heel-toe gait pattern. Minimal verbacl cueing rovided for AD management, limb movement sequence, weight distribution onto AD, and posture to minimize pain report and reduce fall risk. reported a reduction in pain report from 5/10 at rest to 4/10 with activity. Denied headache, chest pain, and lightheadedness throughout session. Balance: Static Sitting: Normal Dynamic Sitting: Normal Static Standing: Fair Dynamic Standing: Fair Special Tests: Mobility Limitations Standardized Measure [facility] 6 clicks Basic Mobility Inpatient Short Form: Raw Score: 22 CMS Score: 21% deficit Informed Consent/Education: Patient instructed in purpose of PT consult. Packet containing LUAN exercise protocol has been given to patient. Education and training on initial set of exercises that can be done at home have been completed with patient. Trained patient with correct performance of exercises below to maximize motor control, joint flexibility, soft tissue extensibility of the L hip musculature to facilitate return to independent functional mobility performance. Access Code: [email or web address] URL: [email or web address] Date: 06/27/2025 Prepared by: Anneliese Henderson Exercises - Gluteal Sets - 1 x daily - 7 x weekly - 1 sets - 10 reps - 5 hold - Supine Heel Slide - 1 x daily - 7 x weekly - 1 sets - 10 reps - 5 hold - Supine Ankle Pumps - 1 x daily - 7 x weekly - 1 sets - 10 reps - 5 hold - Seated March - 1 x daily - 7 x weekly - 1 sets - 10 reps - 5 hold - Seated Long Arc Quad - 1 x daily - 7 x weekly - 1 sets - 10 reps - 5 hold Assessment: Patient required the use of a FWW fro all mobility ADL performance to maximize indepednence and reduce fall risk. Patient presents with clinical signs and symptoms consistent with current/admitting diagnoses that have resulted to mobility limitations, gait instability, generalized weakness, and impairment of motor control as demonstrated by the following impairment level findings: 1. Decreased strength to left hip major muscle groups 2. Impaired standing balance 3. Pain in L hip at 4/10 Impairments are contributing to the following functional limitations: 1. Inability to safely ambulate without assistive device 2. Increase completion time for mobility ADL performance 3. Increased fall risk Patient is assessed as a 70091 moderate complexity based on the following: History: 54-year-old male with impairment level findings, functional limitations, and past medical history as indicated above Examination: Demonstrable impairment in strength, balance, and mobility level with underlying impairments and functional limitations as documented above Presentation: Evolving Decision Makin moderate complexity Goals: N/A. PT evaluation and 1-2 treatment sessions only for functional mobility training using recommended AD and for HEP instruction. Plan of Care/Treatment Plan: N/A. PT evaluation and 1-2 treatment session only for functional mobility training using recommended AD and for HEP instruction. DISCHARGE RECOMMENDATIONS: Home when medically cleared by orthopedic surgeon. Recommend outpatient PT services in order to optimize functional mobility outcomes and facilitate return to independent community ambulation without an assistive device. TREATMENT CODE/TIME: 25573 x 27 minutes for 1 unit (10:33-11:00). Thank you for the opportunity to participate in the care of this patient. Anneliese Henderson PT, DPT, CLT [facility] [place], [place]
[2025-06-27] MEDS: Tranexamic Acid 650 MG TAB 1300 MG PO (11:01)
== END 2025-06-27 11:30 | disposition home or self-care (01) ==
PROVIDERS: PCP Family Medicine; Visit Provider Student in an Organized Health Care Education/Training Program
PROC: (CPT 27130; principal; 2025-06-27 07:30)
DX: M16.12 Unilateral primary osteoarthritis, left hip (principal); R73.03 Prediabetes
CPT/HCPCS: 27130; 20985; 97162; 73501; C1776; J0690; J1100; J2003; J2250; J2371; J2401; J2405; J2704

== ENCOUNTER 2025-07-10 11:20 | Outpatient (CLI) | payer BC, SELFPAY ==
--- NOTE | 2025-07-10 10:45 | DI.RAD_ITS ---
Exam(s) XR HIP LT COMPLETE AP PELVIS EXAM: XR HIP LT COMPLETE AP PELVIS CLINICAL HISTORY: 1st post op S/P L LUAN. TECHNIQUE: 2D digital imaging was performed. Three images were obtained. AP pelvis and AP and lateral left hip views were obtained. COMPARISON: CR XR PELVIS AP from 06/19/2025 XA XR HIP LT IN OR from 06/27/2025 FINDINGS: BONES: There are stable post operative changes of a left total hip arthroplasty present. There is a linear osseous fragment lateral to the prosthetic neck of indeterminate significance. It appears to have been present on the postoperative images from 06/27/2025. JOINTS: The orthopedic hardware is in good position. No evidence of hardware loosening. SOFT TISSUE: Normal. IMPRESSION: Stable left total hip arthroplasty. DATA REPOSITORY: RADIATION DOSE DELIVERED:
== END 2025-07-10 11:21 | disposition home or self-care (01) ==
LOC: DIORS 11:20
PROVIDERS: PCP Family Medicine; Visit Provider Student in an Organized Health Care Education/Training Program
DX: Z96.642 Presence of left artificial hip joint (principal)
CPT/HCPCS: 73502